=== PATIENT | female | born 2000 | race Caucasian/White ===

== ENCOUNTER 2020-10-05 12:40 | Emergency (ER) | payer OTHER, MEDICAID ==
[~2020-10-05] VITALS: Ht 160 cm; Wt 72.0 kg
[2020-10-05 12:45] VITALS: BP 111/79
[2020-10-05 14:55] LABS: CHLORIDE 107 mEq/L (98-107)
== END 2020-10-05 18:22 | disposition home or self-care (01) ==
LOC: ER 12:40
DX: R25.1 Tremor, unspecified (principal); J45.909 Unspecified asthma, uncomplicated
CPT/HCPCS: 36415; 80048; 81025; 99283

== ENCOUNTER 2021-09-26 10:24 | Emergency (ER) | payer MEDICAID, OTHER ==
[~2021-09-26] VITALS: Ht 160 cm; Wt 77.0 kg
[2021-09-26] MEDS ORDERED: SODIUM CHLORIDE 0.9% 1,000 ML IV ONE ×2 (11:30→14:30)
[2021-09-26] MEDS ORDERED: ACETAMINOPHEN 325MG TABLET PO ONE (11:30)
[2021-09-26] MEDS ORDERED: KETOROLAC 15MG/ML VIAL IM ONE (11:30)
[2021-09-26 12:12] LABS: HEMATOCRIT. 34.6 % (36.0-48.0); HEMOGLOBIN. 10.7 g/dL (12.0-16.0); MEAN CORPUSCULAR VOLUME 73.9 fL (81.0-99.0); MEAN PLATELET VOLUME 7.7 fl (7.4-10.4); PLATELET 390 x1000/uL (130-400); RED BLOOD CELL COUNT 4.68 mill/uL (4.2-5.4); RED CELL DISTRIBUTION WIDTH 17.5 % (11.6-14.6)
[2021-09-26 12:17] LABS: CHLORIDE 104 mEq/L (98-107)
[2021-09-26] MEDS ORDERED: KETOROLAC 15MG/ML VIAL IV ONE (12:30)
[2021-09-26 12:32] LABS: HCG SCREEN NEGATIVE
[2021-09-26 13:21] LABS: PLATELET ESTIMATE NORMAL
[2021-09-26] MEDS ORDERED: LIDOCAINE HCL/EPINEPHRINE 1%-EPI 1:100,000 50 ML VIAL INFIL ONE (14:00)
[2021-09-26] MEDS ORDERED: CEFTRIAXONE SODIUM 1 G/VIAL IM ONE (14:00)
[2021-09-26] MEDS ORDERED: AZIT500T8 MT (14:14)
[2021-09-26 15:20] VITALS: BP 97/56
== END 2021-09-26 15:30 | disposition home or self-care (01) ==
LOC: ER 10:24
DX: J06.9 Acute upper respiratory infection, unspecified (principal); R00.0 Tachycardia, unspecified; J45.909 Unspecified asthma, uncomplicated; Z20.822 Contact with and (suspected) exposure to COVID-19; Z98.890 Other specified postprocedural states
CPT/HCPCS: 36415; 71045; 80053; 81025; 83690; 84703; 85025; 87070; 87426; 87430; 87804; 93005; 96361; 96372; 96374; 99285; C9803; J0696; J1885; J7030

== ENCOUNTER 2022-12-09 15:39 | Emergency (ER) | payer MEDICAID, OTHER ==
[~2022-12-09] VITALS: Ht 160 cm; Wt 77.1 kg
[~2022-12-09 15:39] MED LIST: AZIT500T8 MT
[2022-12-09 15:57] VITALS: BP 120/87; TEMP 98.2; O2SAT 99
[2022-12-09 15:59] VITALS: PULSE 78; RESP 20
[2022-12-09 16:51] LABS: BASOPHILS % 0.5 % (0.0-2.0); EOSINOPHILS % 0.4 % (0.0-5.0); HEMATOCRIT. 40.4 % (36.0-48.0); LYMPHOCYTES % 13.1 % (20.0-50.0); MEAN CORPUSCULAR HEMOGLOBIN 28.2 pg (28.0-32.0); MEAN CORPUSCULAR HGB CONC 32.2 g/dL (31.0-37.0); MEAN CORPUSCULAR VOLUME 87.7 fL (81.0-99.0); MEAN PLATELET VOLUME 8.3 fl (7.4-10.4); MONOCYTES % 4.7 % (2.0-8.0); NEUTROPHILS % 81.3 % (40.0-76.0); PLATELET 347 x1000/uL (130-400); RED CELL DISTRIBUTION WIDTH 13.9 % (11.6-14.6); WHITE BLOOD COUNT 13.1 x1000/uL (4.5-11.0)
[2022-12-09 17:02] LABS: CHLORIDE 114 mEq/L (98-107); INDEX HEMOLYSI 1 (1-3); INDEX ICTERIC 1 (1-4); INDEX LIPEMIC 1 (1-3); POTASSIUM 3.8 mEq/L (3.5-5.1); SODIUM 141 mEq/L (136-145)
[2022-12-09 17:11] LABS: ALANINE AMINOTRANSFERASE 28 IU/L (13-61); ALBUMIN 4.4 g/dL (3.4-5.0); ASPARTATE AMINOTRANSFERASE 19 IU/L (15-37); BILIRUBIN TOTAL 0.4 mg/dL (0.1-1.0); CALCIUM 9.1 mg/dL (8.5-10.1); CARBON DIOXIDE 22 mEq/L (21-32); CREATININE 0.8 mg/dL (0.6-1.3); GLUCOSE 129 mg/dL (70-105); PROTEIN TOTAL 8.3 g/dL (6.0-8.3); UREA NITROGEN BLOOD 9 mg/dL (7-21)
[2022-12-09 17:15] LABS: HCG SCREEN NEGATIVE
[2022-12-09] MEDS ORDERED: IBUPROFEN 600MG TABLET PO STA (18:04)
[2022-12-09] MEDS ORDERED: ONDA4TAB50 MT (21:29)
[2022-12-09] MEDS ORDERED: IBUP-2029 MT (21:29)
[2022-12-09] MEDS ORDERED: IBUPROFEN 600MG TABLET PO NR (21:45)
[2022-12-09 21:50] LABS: CLARITY URINE CLEAR (CLEAR); COLOR URINE ORANGE (YELLOW); GLUCOSE URINE NEGATIVE (NEGATIVE); KETONES URINE NEGATIVE (NEGATIVE); LEUKOCYTE ESTERASE URINE 1+ (NEGATIVE); NITRITE URINE NEGATIVE (NEGATIVE); OCCULT BLOOD URINE 3+ (NEGATIVE); PROTEIN URINE 1+ (NEGATIVE); SPECIFIC GRAVITY URINE 1.011 (1.005-1.030); UROBILINOGEN URINE 0.2 E.U./dL (0.2-1.0)
[2022-12-09 21:52] LABS: RBC URINE TNTC /hpf (0-2); SQUAMOUS EPITHELIAL CELL URINE 1+ /lpf (RARE/1+); YEAST URINE NONE SEEN
[2022-12-09 22:02] LABS: BACTERIA URINE TRACE
== END 2022-12-09 22:39 | disposition home or self-care (01) ==
LOC: ER 15:39
DX: N30.00 Acute cystitis without hematuria (principal); J45.909 Unspecified asthma, uncomplicated; Z98.890 Other specified postprocedural states
CPT/HCPCS: 36415; 74018; 80053; 81003; 84703; 85025; 99284